=== PATIENT | male | born 1990 | race Caucasian/White ===

== ENCOUNTER 2017-02-16 11:24 | Observation (INO) | payer BC ==
[2017-02-16] MEDS ORDERED: IPRATROPIUM/ALBUTEROL 3 ML DEYVIAL IH ONE (12:43)
--- NOTE | 2017-02-16 12:43 | EDPHY ---
General Narrative: CHIEF COMPLAINT: Cough, shortness of breath, hypoxemia at primary care office HISTORY OF PRESENT ILLNESS: Patient arrives with complaints of cough, shortness of breath and low oxygen level. He was at his primary care office today for a previously scheduled appointment, when his vital signs revealed hypoxemia. He has had cough and congestion for the past 2 days. Shortness of breath. No malaise. No body aches. Some headache with a subjective fever. No neck pain or stiffness. No abdominal complaints. no urinary complaints. No history of venous thrombolic event. No extremity erythema edema or pain. No rash. No other associated complaints or modifying factors. He did Monday [place] 2 weeks ago. REVIEW OF SYSTEMS: Ten systems reviewed and are negative unless otherwise noted in the HPI PCP: Dr. Sneha Crowell SPECIALISTS: None PAST MEDICAL HISTORY: Bipolar disorder, hypertension PAST SURGICAL HISTORY: Cervical spine SOCIAL HISTORY: Nonsmoker. Occasional alcohol. No drug use. Works in construction FAMILY HISTORY: Noncontributory EXAMINATION General Appearance: Alert, no distress Head: normocephalic, atraumatic Eyes: Pupils equal and round, no conjunctival pallor or injection ENT, Mouth: Mucous membranes moist. Airway patent Neck: Normal inspection, supple, non-tender Respiratory: Scattered rhonchi and crackles. No retractions or distress. Cardiovascular: Tachycardic rate. Regular rhythm. Gastrointestinal: Abdomen is soft and nontender. No tympany rigidity. Nonacute abdomen. Back: non-tender, no bony abnormalities Neurological: GCS 15. A&O, nonfocal, normal gait Skin: Warm and dry, no rash. No petechiae or purpura. No cellulitis. Extremities: Nontender, no pedal edema. Symmetric range of motion. No evidence of DVT. Psychiatric: Mood and affect normal DIFFERENTIAL DIAGNOSES: Including but not limited to sepsis, pneumonia, influenza, hypoxemia, PE, pleurisy, pneumonitis, bronchitis MDM: 12:42 p.m. Cough, shortness of breath and hypoxemia. The patient has felt sick for a few days. He is in no acute distress despite his tachycardia. Although he did not trigger SIRS criteria, we have obtained blood cultures and lactic acid for the possibility of sepsis. He is in no acute distress. Oxygenation has resolved with supplemental oxygen 2 L nasal cannula. 1:20 p.m. Patient re-evaluated. He is starting to feel better on the oxygen and after the duoneb treatment. Oxygen is 95-90% on 2 L. heart rate is variably tachycardic and sinus. Laboratory studies reveal negative lactic acid, and mild leukocytosis. Chemistry pending. Flu swab pending. Chest x-ray does not seem to explain his hypoxia. I have discussed this with Dr. Potts. I have ordered a D-dimer to rule out the possibility of PE. 1:40 p.m. D-dimer negative. Troponin is slightly elevated. No chest pain at this time. Chest x-ray has been read as a right lower lobe pneumonia by radiologist. We have ordered Rocephin and Zithromax for community-acquired pneumonia. 2:00 p.m. Case discussed with hospitalist Jessica Pham. Patient will be admitted to Dr. Jose. He is admitted to a [facility] bed with telemetry. RPP pending at this time. He is admitted in stable condition on 2 L nasal cannula. Admission diagnosis of pneumonia with hypoxemia. He does not meet criteria for sepsis. However he was given IV fluid resuscitation. He is in no acute distress admitted in stable condition. 2:25 p.m. Respiratory pathogen panel is negative. - Diagnostics Imaging Results: Imaging Impressions Chest X-Ray 02/16/17 12:23 Impression: New posterior basilar segment, right lower lobe pneumonia. Results called to Dr. Hansen at 1:38 PM. - History Smoking Status: Current some day smoker - Objective Vital Signs: Initial Vital Signs O2 Sat (%) 94 02/16/17 11:30 O2 Delivery Mode Nasal Cannula O2 (L/minute) 3 Allergies/Adverse Reactions: No Known Allergies Allergy (Unverified 07/24/16 16:55) Home Medications: Medication Instructions Recorded Mirtazapine [Remeron] 30 mg PO HS 07/24/16 Herbals/Supplements -Info Only 1 ea PO DAILY 02/16/17 Lisinopril [Zestril 5 mg (*)] 5 mg PO HS 02/16/17 Multivitamins [Multivitamin (*)] 1 each PO DAILY 02/16/17 lamoTRIgine [LamICTAL 100 MG (*)] 200 mg PO HS 02/16/17 Laboratory Results: Laboratory Results 02/16/17 12:35 02/16/17 12:35 02/16/17 02/16/17 02/16/17 12:35 12:35 12:35 WBC RBC Hgb Hct MCV MCH MCHC RDW Plt Count MPV Neut % (Auto) Lymph % (Auto) Winkler % (Auto) Eos % (Auto) Baso % (Auto) Nucleat RBC Rel Count Absolute Neuts (auto) Absolute Lymphs (auto) Absolute Monos (auto) Absolute Eos (auto) Absolute Basos (auto) Absolute Nucleated RBC Immature Gran % Immature Gran # PT 13.1 SEC SEC (12.0-15.0) INR 1.00 (0.83-1.16) APTT 28.7 SEC SEC (23.0-38.0) D-Dimer < 0.27 ug/mLFEU ug/mLFEU (0.00-0.50) VBG Lactic Acid 0.9 mmol/L mmol/L (0.7-2.1) Sodium Potassium Chloride Carbon Dioxide Anion Gap BUN Creatinine Estimated GFR Glucose Calcium Troponin I Procalcitonin 0.18 ng/mL H ng/mL (0.02-0.10) 02/16/17 02/16/17 12:35 12:35 WBC 9.73 10^3/uL H 10^3/uL (3.80-9.50) RBC 5.34 10^6/uL 10^6/uL (4.40-6.38) Hgb 15.7 g/dL g/dL (13.7-17.5) Hct 44.8 % % (40.0-51.0) MCV 83.9 fL fL (81.5-99.8) MCH 29.4 pg pg (27.9-34.1) MCHC 35.0 g/dL g/dL (32.4-36.7) RDW 11.9 % % (11.5-15.2) Plt Count 196 10^3/uL 10^3/uL (150-400) MPV 9.8 fL fL (8.7-11.7) Neut % (Auto) 80.9 % H % (39.3-74.2) Lymph % (Auto) 12.1 % L % (15.0-45.0) Winkler % (Auto) 6.0 % % (4.5-13.0) Eos % (Auto) 0.4 % L % (0.6-7.6) Baso % (Auto) 0.4 % % (0.3-1.7) Nucleat RBC Rel Count 0.0 % % (0.0-0.2) Absolute Neuts (auto) 7.87 10^3/uL H 10^3/uL (1.70-6.50) Absolute Lymphs (auto) 1.18 10^3/uL 10^3/uL (1.00-3.00) Absolute Monos (auto) 0.58 10^3/uL 10^3/uL (0.30-0.80) Absolute Eos (auto) 0.04 10^3/uL 10^3/uL (0.03-0.40) Absolute Basos (auto) 0.04 10^3/uL 10^3/uL (0.02-0.10) Absolute Nucleated RBC 0.00 10^3/uL 10^3/uL (0-0.01) Immature Gran % 0.2 % % (0.0-1.1) Immature Gran # 0.02 10^3/uL 10^3/uL (0.00-0.10) PT INR APTT D-Dimer VBG Lactic Acid Sodium 139 mEq/L mEq/L (134-144) Potassium 4.2 mEq/L mEq/L (3.5-5.2) Chloride 98 mEq/L mEq/L (97-110) Carbon Dioxide 27 mEq/l mEq/l (22-31) Anion Gap 14 mEq/L mEq/L (8-16) BUN 9 mg/dL mg/dL (7-23) Creatinine 1.2 mg/dL mg/dL (0.7-1.3) Estimated GFR > 60 Glucose 84 mg/dL mg/dL (70-100) Calcium 8.9 mg/dL mg/dL (8.5-10.4) Troponin I 0.069 ng/mL H ng/mL (0.000-0.034) Procalcitonin Microbiology Results: MICROBIOLOGY 02/16/17 12:40 Nasal, Sinus - Swab Respiratory Panel (PCR) - Final No Organism Detected Medications Given: Guaifenesin (Mucinex) 1,200 mg PO BID PARAMJIT Stop: 08/15/17 14:44 Last Admin: 02/16/17 15:51 Dose: 1,200 mg Prednisone (Prednisone) 20 mg PO DAILY PARAMJIT Stop: 05/15/18 14:44 Last Admin: 02/16/17 15:51 Dose: 20 mg Discontinued Medications Albuterol/Ipratropium (Duoneb) 3 ml IH EDNOW ONE Stop: 02/16/17 12:44 Last Admin: 02/16/17 12:48 Dose: 3 ml Azithromycin 500 mg/ Dextrose 255 mls @ 255 mls/hr IV EDNOW ONE PRN Reason: Protocol Stop: 02/16/17 14:41 Last Admin: 02/16/17 15:24 Dose: 255 mls Ceftriaxone Sodium/Dextrose (Rocephin 1 Gm (Premix)) 50 mls @ 100 mls/hr IV EDNOW ONE PRN Reason: Protocol Stop: 02/16/17 14:11 Last Admin: 02/16/17 14:21 Dose: 50 mls Departure - Departure Disposition: [facility] Inpatient Acute Clinical Impression: Hypoxemia, Elevated troponin Community acquired pneumonia Qualifiers: Laterality: right Lung location: lower lobe of lung Qualified Code(s): J18.1 - Lobar pneumonia, unspecified organism Condition: Good
[2017-02-16 12:44] LABS: % IMMATURE GRANULYOCYTES 0.2 % (0.0-1.1); ABSOLUTE IMMATURE GRANULOCYTES 0.02 10^3/uL (0.00-0.10); ADD DIFF? NO; ADD MORPH? NO; ADD SCAN? NO; ATYPICAL LYMPHOCYTE FLAG 0 (0-99); FRAGMENT RBC FLAG 0 (0-99); HEMATOCRIT 44.8 % (40.0-51.0); HEMOGLOBIN 15.7 g/dL (13.7-17.5); LEFT SHIFT FLG 10 (0-99); LIPEMIA HEMOLYSIS FLAG 90 (0-99); MEAN CELL HEMOGLOBIN 29.4 pg (27.9-34.1); MEAN CELL VOLUME 83.9 fL (81.5-99.8); MEAN PLATELET VOLUME 9.8 fL (8.7-11.7); PLATELET CLUMPS FLAG 0 (0-99); PLATELET COUNT 196 10^3/uL (150-400); RED BLOOD CELL COUNT 5.34 10^6/uL (4.40-6.38); RED CELL DISTRIBUTION WIDTH 11.9 % (11.5-15.2)
[2017-02-16 13:02] LABS: PROTIME(PATIENT) 13.1 SEC (12.0-15.0)
[2017-02-16 13:03] LABS: APTT 28.7 SEC (23.0-38.0)
[2017-02-16 13:15] LABS: ANION GAP 14 mEq/L (8-16); CALCIUM 8.9 mg/dL (8.5-10.4); CARBON DIOXIDE 27 mEq/l (22-31); CHLORIDE 98 mEq/L (97-110); CREATININE 1.2 mg/dL (0.7-1.3); GLOMERULAR FILTRATION RATE > 60; GLUCOSE 84 mg/dL (70-100); POTASSIUM 4.2 mEq/L (3.5-5.2); SODIUM 139 mEq/L (134-144)
--- NOTE | 2017-02-16 13:40 | CPEKG ---
Heart Rate: 94 RR Interval: 638 P-R Interval: 140 QRSD Interval: 90 QT Interval: 360 QTC Interval: 451 P Leedey: 64 QRS Leedey: 80 T Wave Leedey: 24 EKG Severity - BORDERLINE ECG - EKG Impression: SINUS RHYTHM EKG Impression: PROBABLE LEFT ATRIAL ABNORMALITY Electronically Signed By: Mayela Potts 16-Feb-2017 20:49:04
[2017-02-16] MEDS ORDERED: AZITHROMYCIN IV 500 MG in D5W 250 ML IV ONE (13:42)
[2017-02-16 14:01] LABS: TROPONIN I 0.069 ng/mL (0.000-0.034)
[2017-02-16] MEDS ORDERED: PROMETHAZINE HCL 25 MG/ML INJ IVP PRN (14:05)
[2017-02-16] MEDS ORDERED: ACETAMINOPHEN 325 MG TAB PO PRN (14:05)
[2017-02-16] MEDS ORDERED: ONDANSETRON DISINTEGRATING 4 MG TAB PO PRN (14:05)
[2017-02-16] MEDS ORDERED: ONDANSETRON 4 MG/2 ML VIAL IVP PRN (14:05)
[2017-02-16] MEDS ORDERED: IBUPROFEN 200 MG TAB PO PRN (14:05)
[2017-02-16] MEDS ORDERED: PROMETHAZINE HCL 25 MG TAB PO PRN (14:05)
[2017-02-16] MEDS ORDERED: NS 1,000 ML IV SCH (14:15)
[2017-02-16] MEDS ORDERED: BENZONATATE 100 MG CAP PO PRN (14:40)
[2017-02-16] MEDS ORDERED: guaiFENesin/CODEINE PHOS 10 ML UDCUP PO PRN (14:40)
[2017-02-16] MEDS: predniSONE 20 MG TAB PO SCH (15:51)
[2017-02-16] MEDS: guaiFENesin 600 MG TAB.ER PO SCH ×2 (15:51→21:20)
[2017-02-16] MEDS: IPRATROPIUM/ALBUTEROL 3 ML DEYVIAL IH SCH ×2 (17:16→21:44)
--- NOTE | 2017-02-16 17:31 | PDGENHP ---
History and Physical - Chief Complaint Acute cough - History of Present Illness Primary care provider: Roberta Cruz HPI: 26-year-old male presents with acute cough characterized as productive, associated with sore throat, myalgias, onset of symptoms 1 day prior and duration persistent thereafter. The patient denies any overt chest pain, but does endorse shortness of breath which is exacerbated by exertion. He has not used any medications to alleviate his symptoms. He has not recently been smoking, drinking, using any other drugs. He reported his symptoms to his primary care provider, and she sent to the hospital. Prior to his onset of symptoms, the patient had otherwise been feeling well. History Information - Allergies/Home Medication List Allergies/Adverse Reactions: No Known Allergies Allergy (Unverified 07/24/16 16:55) Home Medications: Mirtazapine [Remeron] 30 mg PO HS 07/24/16 [Last Taken 02/15/17] Herbals/Supplements -Info Only 1 ea PO DAILY 02/16/17 [Last Taken Unknown] Lisinopril [Zestril 5 mg (*)] 5 mg PO HS 02/16/17 [Last Taken 02/15/17] Multivitamins [Multivitamin (*)] 1 each PO DAILY 02/16/17 [Last Taken 02/15/17] lamoTRIgine [LamICTAL 100 MG (*)] 200 mg PO HS 02/16/17 [Last Taken 02/15/17] I have personally reviewed and updated: family history, medical history, social history, surgical history - Past Medical History Additional medical history: Heroin addiction, previously in rehab, overdose in July 2016 complicated by aspiration pneumonia - Surgical History Reports: no pertinent surgical hx - Family History Additional family history: Patient denies any significant family history of pulmonary or infectious disorders - Social History Smoking Status: Former smoker (Patient reports that he does not smoke) Alcohol Use: None Drug Use: Heroin (Last use reportedly July 2016) Additional social history: As noted above, long history of rehab and addiction since age 9 Review of Systems Review of Systems: ROS: 10pt was reviewed & negative except for what was stated in HPI & below Constitutional: Reports: malaise EENMT: Reports: sore throat Respiratory: Reports: cough, shortness of breath Muscolosketal: Reports: muscle pain Physical Exam Physical Exam: Temp Pulse Resp BP Pulse Ox 36.9 C 95 18 134/80 H 96 02/16/17 15:48 02/16/17 17:17 02/16/17 17:17 02/16/17 15:48 02/16/17 17:17 O2 (L/minute) 3 Constitutional: no apparent distress, appears nourished, uncomfortable, No obese Eyes: PERRL, anicteric sclera, EOMI Ears, Nose, Mouth, Throat: moist mucous membranes, hearing normal, ears appear normal, no oral mucosal ulcers Cardiovascular: tachycardia, No systolic murmur, No irregularly irregular, No edema Respiratory: expiratory wheeze, inspiratory crackles (Right base), bronchial breath sounds (Bilaterally), No respiratory distress Gastrointestinal: normoactive bowel sounds, soft, non-tender abdomen, no palpable masses, No distension Skin: warm, normal color, no rashes or abrasions, no fluctuance, no induration, No mottled Neurologic: AAOx3, sensation intact bilaterally, No weakness Psychiatric: interacting appropriately, not anxious, not encephalopathic, thought process linear Lab Data & Imaging Review 02/16/17 12:35 02/16/17 12:35 WBC 9.73 10^3/uL (3.80-9.50) H 02/16/17 12:35 RBC 5.34 10^6/uL (4.40-6.38) 02/16/17 12:35 Hgb 15.7 g/dL (13.7-17.5) 02/16/17 12:35 Hct 44.8 % (40.0-51.0) 02/16/17 12:35 MCV 83.9 fL (81.5-99.8) 02/16/17 12:35 MCH 29.4 pg (27.9-34.1) 02/16/17 12:35 MCHC 35.0 g/dL (32.4-36.7) 02/16/17 12:35 RDW 11.9 % (11.5-15.2) 02/16/17 12:35 Plt Count 196 10^3/uL (150-400) 02/16/17 12:35 MPV 9.8 fL (8.7-11.7) 02/16/17 12:35 Neut % (Auto) 80.9 % (39.3-74.2) H 02/16/17 12:35 Lymph % (Auto) 12.1 % (15.0-45.0) L 02/16/17 12:35 [place] % (Auto) 6.0 % (4.5-13.0) 02/16/17 12:35 Eos % (Auto) 0.4 % (0.6-7.6) L 02/16/17 12:35 Baso % (Auto) 0.4 % (0.3-1.7) 02/16/17 12:35 Nucleat RBC Rel Count 0.0 % (0.0-0.2) 02/16/17 12:35 Absolute Neuts (auto) 7.87 10^3/uL (1.70-6.50) H 02/16/17 12:35 Absolute Lymphs (auto) 1.18 10^3/uL (1.00-3.00) 02/16/17 12:35 Absolute Monos (auto) 0.58 10^3/uL (0.30-0.80) 02/16/17 12:35 Absolute Eos (auto) 0.04 10^3/uL (0.03-0.40) 02/16/17 12:35 Absolute Basos (auto) 0.04 10^3/uL (0.02-0.10) 02/16/17 12:35 Absolute Nucleated RBC 0.00 10^3/uL (0-0.01) 02/16/17 12:35 Immature Gran % 0.2 % (0.0-1.1) 02/16/17 12:35 Immature Gran # 0.02 10^3/uL (0.00-0.10) 02/16/17 12:35 PT 13.1 SEC (12.0-15.0) 02/16/17 12:35 INR 1.00 (0.83-1.16) 02/16/17 12:35 APTT 28.7 SEC (23.0-38.0) 02/16/17 12:35 D-Dimer < 0.27 ug/mLFEU (0.00-0.50) 02/16/17 12:35 VBG Lactic Acid 0.9 mmol/L (0.7-2.1) 02/16/17 12:35 Sodium 139 mEq/L (134-144) 02/16/17 12:35 Potassium 4.2 mEq/L (3.5-5.2) 02/16/17 12:35 Chloride 98 mEq/L (97-110) 02/16/17 12:35 Carbon Dioxide 27 mEq/l (22-31) 02/16/17 12:35 Anion Gap 14 mEq/L (8-16) 02/16/17 12:35 BUN 9 mg/dL (7-23) 02/16/17 12:35 Creatinine 1.2 mg/dL (0.7-1.3) 02/16/17 12:35 Estimated GFR > 60 02/16/17 12:35 Glucose 84 mg/dL (70-100) 02/16/17 12:35 Calcium 8.9 mg/dL (8.5-10.4) 02/16/17 12:35 Troponin I 0.069 ng/mL (0.000-0.034) H 02/16/17 12:35 Procalcitonin 0.18 ng/mL (0.02-0.10) H 02/16/17 12:35 Visualized and Interpreted Chest x-ray results: Yes Chest X-Ray results: other (Possible right lower lobe infiltrate) Visualized and Interpreted EKG results: Yes EKG Interpretation: Positive for: other (Sinus mechanism with T-wave inversion in lead 3) Assessment & Plan Assessment: 26-year-old male presents with suspected community-acquired pneumonia complicated by acute reactive airway exacerbation Plan: 1. Community-acquired pneumonia. Acute, new problem this provider, further workup indicated. Suspected, pneumonia severity index score of 36, conferring class 2 risk of worsening morbidity and/or mortality -patient requires hospital treatment and monitoring given his notable hypoxia, 85% on room air, continue supplemental oxygen -administer empiric IV antibiotics including ceftriaxone and azithromycin, continue based on imaging results below -respiratory viral panel negative, procalcitonin level 0.18, suggesting bacterial infection and get CT of chest without contrast to further define whether this is a lobar pneumonia -continue to monitor urine strep, sputum cultures 2. Acute reactive airway exacerbation. Evidenced by diffuse expiratory wheezes and bronchial breath sounds, past history of intermittent smoking, but none active, no history of asthma or other pulmonary disease -placed on scheduled duo nebs, administer moderate strength prednisone, given the patient's underlying bipolar disease (has never experienced a manic episode secondary to steroids) -supportive care with mucolytics, antitussives -treatment of underlying cause, notably pneumonia 3. Heroin addiction. Patient reports last use in July of 2016, reports that he was tested for HIV and hepatitis approximately 3 months after that time, and they were reportedly negative, no indication to retest -reviewed outside records including DC Summary by Dr. Kayode Scott 07/26/16, reports OD w/ aspiration PNA, treated w/ Unasyn->Augmentin/Doxy -patient denies any recent use or aspiration/passing out 4. Myocardial ischemia. Most likely transient in the setting of tachycardia and infection, young age would most likely argue against obstructive coronary disease, and his EKG demonstrates no ischemic changes -cycle cardiac enzymes, monitor on telemetry for any unusual arrhythmias Diet. Regular Prophylaxis. Low risk patient, SCDs Code. Full Disposition. Anticipated discharge is 02/17, pending clinical resolution of above. If patient requires additional workup or inpatient treatment, he shall be upgraded to inpatient admission status tomorrow. Discussed with Jessica Pham, hospitalist provider, she has signed out this patient to me for evaluation.
[2017-02-16] MEDS ORDERED: MIRTAZAPINE 30 MG TAB PO SCH (21:00)
[2017-02-16] MEDS ORDERED: LISINOPRIL 5 MG TAB PO SCH (21:00)
[2017-02-16] MEDS ORDERED: lamoTRIgine 100 MG TAB PO SCH (21:00)
[2017-02-17 05:09] LABS: % IMMATURE GRANULYOCYTES 0.2 % (0.0-1.1); ABSOLUTE IMMATURE GRANULOCYTES 0.01 10^3/uL (0.00-0.10); ADD DIFF? NO; ADD MORPH? NO; ADD SCAN? NO; ATYPICAL LYMPHOCYTE FLAG 0 (0-99); FRAGMENT RBC FLAG 0 (0-99); HEMATOCRIT 40.7 % (40.0-51.0); HEMOGLOBIN 14.3 g/dL (13.7-17.5); LEFT SHIFT FLG 0 (0-99); LIPEMIA HEMOLYSIS FLAG 90 (0-99); MEAN CELL HEMOGLOBIN 29.5 pg (27.9-34.1); MEAN CELL HEMOGLOBIN CONCENTR. 35.1 g/dL (32.4-36.7); MEAN CELL VOLUME 83.9 fL (81.5-99.8); MEAN PLATELET VOLUME 10.2 fL (8.7-11.7); PLATELET CLUMPS FLAG 0 (0-99); PLATELET COUNT 160 10^3/uL (150-400); RED BLOOD CELL COUNT 4.85 10^6/uL (4.40-6.38)
[2017-02-17 05:29] LABS: ALANINE AMINOTRANSFERASE 43 IU/L (21-72); ALBUMIN 3.5 g/dL (3.5-5.0); ALKALINE PHOSPHATASE 55 IU/L (38-126); ANION GAP 11 mEq/L (8-16); ASPARTATE AMINOTRANSFERASE 31 IU/L (17-59); BILIRUBIN,TOTAL 0.3 mg/dL (0.1-1.4); CALCIUM 8.6 mg/dL (8.5-10.4); CARBON DIOXIDE 28 mEq/l (22-31); CHLORIDE 104 mEq/L (97-110); CREATININE 1.1 mg/dL (0.7-1.3); GLOMERULAR FILTRATION RATE > 60; GLUCOSE 116 mg/dL (70-100); MAGNESIUM 2.1 mg/dL (1.6-2.3); POTASSIUM 3.8 mEq/L (3.5-5.2); SODIUM 143 mEq/L (134-144); TOTAL PROTEIN 5.8 g/dL (6.3-8.2)
[2017-02-17 05:38] LABS: TROPONIN I < 0.012 ng/mL (0.000-0.034)
[2017-02-17] MEDS: IPRATROPIUM/ALBUTEROL 3 ML DEYVIAL IH SCH ×2 (05:48→11:36)
[2017-02-17 08:19] VITALS: BP 118/57; RESP 14; TEMP 98.1
[2017-02-17] MEDS: guaiFENesin 600 MG TAB.ER PO SCH (08:52)
[2017-02-17] MEDS: predniSONE 20 MG TAB PO SCH (08:52)
[2017-02-17] MEDS ORDERED: MULTIVITAMINS 1 EACH TAB PO SCH (09:00)
[2017-02-17] MEDS ORDERED: Herbals/Supplements -Info Only PO SCH (09:00)
[2017-02-17] MEDS ORDERED: AZITHROMYCIN IV 500 MG in D5W 250 ML IV SCH (09:00)
--- NOTE | 2017-02-17 10:00 | HOSPPROG ---
Hospitalist Progress Note Assessment/Plan: Miguel is a 26 y/o male who presented to the ER with cough, sore throat and myalgias. This had been ongoing for one day. *CAP resp panel neg procalcitonin is 0.18 will check O2 levels on room air blood cx pending, sputum cx pending CT of chest shows development of RLL pna on Ceftriaxone and azithromycin *Acute reactive airway exacerbation lung sounds much improved *Hx of heroine addiction *elevated troponin probable demand ischemia resolved reviewed athletic monitor/ no arrhythmia's, sinus *splenomegaly should get further f/u with his PCP avoid high contact sports *Plan: dc after lunch if he continues to do well Subjective: Miguel is feeling well/ no complaints. Objective: Vital Signs Temp Pulse Resp BP Pulse Ox 36.7 C 73 14 118/57 L 92 02/17/17 08:18 02/17/17 08:18 02/17/17 08:18 02/17/17 08:18 02/17/17 08:18 Microbiology 02/16/17 21:12 - Final Sputum, Expectorated Laboratory Results 02/17/17 04:52 02/17/17 04:52 02/16/17 02/17/17 02/18/17 05:59 05:59 05:59 Intake Total 1550 Balance 1550 PT 13.1 SEC (12.0-15.0) 02/16/17 12:35 INR 1.00 (0.83-1.16) 02/16/17 12:35 - Physical Exam Constitutional: no apparent distress, appears nourished Eyes: PERRL Ears, Nose, Mouth, Throat: hearing normal Cardiovascular: regular rate and rhythym, no murmur, rub, or gallop Respiratory: no respiratory distress Gastrointestinal: normoactive bowel sounds Skin: warm, normal color Musculoskeletal: full muscle strength Neurologic: AAOx3 Psychiatric: interacting appropriately ICD10 Worksheet Patient Problems: Problems Problem Status Onset Community acquired pneumonia Acute Elevated troponin Acute Hypoxemia Acute Deaf Acute Heroin overdose Acute Hypoxia Acute
--- NOTE | 2017-02-17 11:02 | ASMTCMCOM ---
CM Note CM Note Notes: Pt was admitted with PNA. Hx heroin addiction and rehabs, last reported use July 2016. Discharging home today with no CM needs. Date Signed: 02/17/2017 11:00 AM Electronically Signed By:HEMALATHA Connolly
[2017-02-17 11:42] VITALS: PULSE 89; O2SAT 93
--- NOTE | 2017-02-18 | GDS ---
[f rep st] DISCHARGE SUMMARY DISCHARGE DIAGNOSES: 1. Community-acquired pneumonia. 2. Acute reactive airway disease exacerbation. 3. History of heroin addiction. 4. Elevated troponin. 5. Splenomegaly. BRIEF HISTORY: The patient is a 26-year-old gentleman, who presented to the emergency room with a pr oductive cough and sore throat with associated myalgias. He denies any chest pain. He reported symp toms to his primary care provider, and he was sent to the hospital for further evaluation. A chest x -ray was performed, which showed a new posterior basilar segment of a right lower lobe pneumonia. A CT of the chest was performed, which showed suspected developing pneumonia, greatest in the right low er lobe. Miliary granulomatosis infection is in the differential diagnosis. He has splenomegaly, po ssibly. HOSPITAL COURSE PER PROBLEM: 1. Community-acquired pneumonia. His respiratory panel was negative. Procalcitonin was slightly el evated at 0.18. He is stable on room air. He will be discharged on azithromycin and Augmentin. He will further follow up with his primary care provider and get a repeat chest x-ray to make sure resol ution of the pneumonia. 2. Acute reactive airway disease exacerbation. Will continue the prednisone for 3 more days. 3. History of heroin addiction. A nonissue on this admission. 4. Elevated troponin. This is likely secondary from demand ischemia. This resolved. I reviewed e quality assurance monitor. He has been in sinus rhythm. 5. Splenomegaly. Difficult to ascertain if this is definite. I recommend he follow up with his [facility] care provider and get a repeat ultrasound, in addition to avoid high contact sports until this i s further evaluated. PENDING LABORATORIES: Blood cultures are pending. Currently have no growth. CONDITION AT DISCHARGE: Stable. Blood pressure is 118/57, heart rate is 89, respiratory rate is 14, O2 sats on room air are 93%, temperature is 36.7 Celsius. MEDICATIONS AT DISCHARGE: Please see the EMR. DISCHARGE INSTRUCTIONS: 1. To follow up with his primary care provider and get a repeat chest x-ray in 6 weeks. 2. To get further evaluation to rule out that he has splenomegaly. It may be from his viral illness . 3. If he develops fever, chills, worsening shortness of breath, return to the emergency room. /[id number]/MODL
== END 2017-02-17 12:44 | disposition home or self-care (01) ==
LOC: F3E 15:36
PROVIDERS: ADMIT Internal Medicine; ATTEND Internal Medicine
DX: J18.8 Other pneumonia, unspecified organism (principal); J45.901 Unspecified asthma with (acute) exacerbation; F11.20 Opioid dependence, uncomplicated; I25.9 Chronic ischemic heart disease, unspecified; R16.1 Splenomegaly, not elsewhere classified
CPT/HCPCS: 71020; 71250; 93005; G0378; J0456; J0696